=== PATIENT | female | born 1995 | race Caucasian/White ===

== ENCOUNTER 2019-01-01 08:31 | Emergency (ER) | payer MEDICAID ==
[~2019-01-01] VITALS: Ht 154.9 cm; Wt 76.2 kg
[2019-01-01 08:31] VITALS: BP_SYST 127
--- NOTE | 2019-01-01 08:31 | NUR ---
BROUGHT BACK TO BED #2 AND TRIAGED. REPORT GIVEN TO MIKAEL
--- NOTE | 2019-01-01 09:00 | NUR ---
Patient presented to ER with rash to right inner ankle. Patient A&Ox4, ambulatory to ER, patient brought in by home health caregiver from [facility]. PAtient states rash started 2 days ago. Patient denies other health hx
--- NOTE | 2019-01-01 09:00 | NUR ---
ER Dr. Orozco at bedside examining patient.
[2019-01-01 09:35] VITALS: BP_SYST 127
--- NOTE | 2019-01-01 09:35 | NUR ---
Patient given written and verbal discharge instructions and verbalizes understanding. ER MD discussed with patient the results and treatment provided. Patient in stable condition. ID arm band removed. Rx of given. Patient educated on pain management and to follow up with PMD. Pain Scale 0/10. Opportunity for questions provided and answered. Medication side effect fact sheet provided.
== END 2019-01-01 09:35 | disposition home or self-care (01) ==
LOC: SED 08:31
DX: R21 Rash and other nonspecific skin eruption (principal); E11.9 Type 2 diabetes mellitus without complications
CPT/HCPCS: 99283

== ENCOUNTER 2019-03-17 08:15 | Emergency (ER) | payer MEDICAID ==
[~2019-03-17] VITALS: Ht 154.9 cm; Wt 72.6 kg
[2019-03-17 08:19] VITALS: BP_SYST 140
--- NOTE | 2019-03-17 08:26 | NUR ---
Patient was brought in by her caregiver, c/o productive cough since Saturday. Denied any fevers or chills. Patient is alert and oriented x4, respirations even and unlabored, speaking in full sentences, ambulating with a steady gait. Caregiver at bedside. Instructed to notify ED staff for worsening of symptoms while waiting to be seen by the provider. Patient verbalized understanding.
--- NOTE | 2019-03-17 08:26 | NUR ---
Patient to ER bed 7 to gown for evaluation. Side rails up. Report given to GUERDA MCCORMACK.
--- NOTE | 2019-03-17 08:27 | NUR ---
ABDIEL Seth at bedside examining patient.
--- NOTE | 2019-03-17 09:00 | NUR ---
Patient given written and verbal discharge instructions and verbalizes understanding. ER MD discussed with patient the results and treatment provided. Patient in stable condition. ID arm band removed. Rx of Mounika Oliver given. Patient educated on pain management and to follow up with PMD. Pain Scale 0/10. Opportunity for questions provided and answered. Medication side effect fact sheet provided.
[2019-03-17 09:01] VITALS: BP_SYST 121
== END 2019-03-17 09:00 | disposition home or self-care (01) ==
LOC: SED 08:15
DX: J40 Bronchitis, not specified as acute or chronic (principal); I10 Essential (primary) hypertension; E11.9 Type 2 diabetes mellitus without complications
CPT/HCPCS: 99283